=== PATIENT | male | born 1950 | race Two or more races ===

== ENCOUNTER → 2022-10-19 | Outpatient (CLI) | payer OTHER ==
[2022-10-19 10:04] LABS: Urine Bacteria FEW /hpf (None Seen); Urine Blood Negative /uL (Negative); Urine Mucus FEW (None Seen); Urine Specific Gravity 1.022 (1.001-1.035); Urine WBC <1 /hpf (0 - 3)
[2022-10-19 10:35] LABS: Anion Gap 4 (5-15); Carbon Dioxide 26 mmol/L (21-32); Chloride 107 mmol/L (98-107); Potassium 4.3 mmol/L (3.5-5.1); Prolactin 9.42 ng/mL (2.8-29.2); Prostate Specific Antigen 1.39 ng/mL (0.0-4.0); Sodium 137 mmol/L (136-145)
[2022-10-19 10:42] LABS: Alanine Aminotransferase 36 U/L (16-61); Albumin 3.9 g/dL (3.4-5.0); Alkaline Phosphatase 73 U/L (45-117); Aspartate Aminotransferase 30 U/L (15-37); BUN/Creatinine Ratio 18.9 (10.0-20.0); Bilirubin, Direct < 0.1 mg/dL (0-0.2); Bilirubin, Total 0.4 mg/dL (0.2-1.0); Blood Urea Nitrogen 17 mg/dL (7-18); Calcium 9.7 mg/dL (8.5-10.1); Cholesterol 162 mg/dL (< 200); GFR African American 106 mL/min; GFR Non-African American 88 mL/min; Glucose 99 mg/dL (74-106); HDL Cholesterol 35 mg/dL (40-59); LDL Cholesterol 106 mg/dL (< 100); Total Protein 8.2 g/dL (6.4-8.2); Triglycerides 199 mg/dL (< 150)
== END | disposition home or self-care (01) ==
LOC: LAB 09:18
PROVIDERS: ATTEND Family Medicine
DX: Z00.00 Encounter for general adult medical examination without abnormal findings (principal); K76.89 Other specified diseases of liver; E07.9 Disorder of thyroid, unspecified; E55.9 Vitamin D deficiency, unspecified
CPT/HCPCS: 36415; 80053; 80061; 80076; 81001; 82306; 82607; 83036; 83540; 83550; 84146; 84153; 84155; 84165; 84403; 84443

== ENCOUNTER → 2023-05-11 | Outpatient (CLI) | payer OTHER ==
[2023-05-11 12:21] LABS: Basophils # (auto) 0 10 ^3/uL (0-0.2); Basophils % (auto) 0.9 % (0.0-2.0); Eosinophils # (auto) 0.2 10 ^3/uL (0-0.8); Eosinophils % (auto) 4.1 % (0.0-7.0); Hematocrit 41.2 % (41.0-53.0); Hemoglobin 14.3 g/dL (13.5-17.5); Lymphocytes # (auto) 1.8 10 ^3/uL (0.4-5.4); Mean Corpuscular Hemoglobin 30.2 pg (28.0-32.0); Mean Corpuscular Hgb Conc. 34.8 g/dL (32.0-36.0); Mean Corpuscular Volume 86.8 fL (80.0-100.0); Monocytes # (auto) 0.6 10 ^3/uL (0-1.3); Monocytes % (auto) 10.8 % (0.0-12.0); Neutrophils # (auto) 2.6 10 ^3/uL (1.6-8.6); Neutrophils % (auto) 49.2 % (37.0-80.0); Nucleated Red Blood Cells % 0.1 %; Red Blood Cells 4.75 10^6/uL (4.5-5.90); Red Cell Distribution Width 14.1 % (11.8-14.3); White Blood Cell 5.3 10^3/uL (4.4-10.8)
[2023-05-11 12:57] LABS: INR 0.98 (0.9-1.15); Prothrombin Time 10.3 sec (9.3-11.8)
[2023-05-11 13:02] LABS: Alanine Aminotransferase 28 U/L (7-40); Albumin 4.5 g/dL (3.2-4.8); Alkaline Phosphatase 85 U/L (46-116); Anion Gap 8 (5-15); Aspartate Aminotransferase 32 U/L (13-40); BUN/Creatinine Ratio 17.3 (10.0-20.0); Bilirubin, Total 0.3 mg/dL (0.2-1.0); Blood Urea Nitrogen 17 mg/dL (9-23); Calcium 9.5 mg/dL (8.7-10.4); Carbon Dioxide 25 mmol/L (20-30); Chloride 105 mmol/L (98-107); Glucose 87 mg/dL (74-106); Potassium 4.3 mmol/L (3.5-5.1); Sodium 138 mmol/L (136-145)
[2023-05-14 09:11] LABS: Hepatitis B Surface Antigen Negative (Negative)
[2023-05-14 09:32] LABS: Hepatitis C Antibody Negative (Negative)
== END | disposition home or self-care (01) ==
LOC: LAB 11:59
PROVIDERS: ATTEND Internal Medicine Gastroenterology
DX: K74.60 Unspecified cirrhosis of liver (principal)
CPT/HCPCS: 36415; 80053; 82105; 82728; 85025; 85610; 86803; 87340

== ENCOUNTER → 2023-09-26 | Day surgery (SDC) | payer OTHER ==
[2023-09-24 10:49] LABS: Basophils # (auto) 0.1 10 ^3/uL (0-0.2); Basophils % (auto) 1.3 % (0.0-2.0); Eosinophils # (auto) 0.3 10 ^3/uL (0-0.8); Eosinophils % (auto) 4.8 % (0.0-7.0); Hematocrit 41.1 % (41.0-53.0); Hemoglobin 13.9 g/dL (13.5-17.5); Lymphocytes # (auto) 2.2 10 ^3/uL (0.4-5.4); Lymphocytes % (auto) 37.8 % (10.0-50.0); Mean Corpuscular Hemoglobin 29.8 pg (28.0-32.0); Mean Corpuscular Hgb Conc. 33.9 g/dL (32.0-36.0); Mean Corpuscular Volume 87.8 fL (80.0-100.0); Monocytes # (auto) 0.7 10 ^3/uL (0-1.3); Monocytes % (auto) 11.5 % (0.0-12.0); Neutrophils # (auto) 2.6 10 ^3/uL (1.6-8.6); Neutrophils % (auto) 44.6 % (37.0-80.0); Nucleated Red Blood Cells % 0.1 %; Red Blood Cells 4.68 10^6/uL (4.5-5.90); Red Cell Distribution Width 14.4 % (11.8-14.3); White Blood Cell 5.8 10^3/uL (4.4-10.8)
[2023-09-24 11:03] LABS: INR 0.99 (0.9-1.15); Partial Thromboplastin Time 31.9 SEC (24.5-34.5); Prothrombin Time 10.4 sec (9.3-11.8)
[2023-09-24 11:26] LABS: Alanine Aminotransferase 43 U/L (7-40); Alkaline Phosphatase 65 U/L (46-116); Anion Gap 8 (5-15); Aspartate Aminotransferase 63 U/L (13-40); BUN/Creatinine Ratio 11.8 (10.0-20.0); Blood Urea Nitrogen 11 mg/dL (9-23); Calcium 9.4 mg/dL (8.5-10.1); Carbon Dioxide 24 mmol/L (20-30); Chloride 106 mmol/L (98-107); Glucose 83 mg/dL (74-106); Sodium 138 mmol/L (136-145)
[2023-09-24 11:27] LABS: Albumin 4.4 g/dL (3.2-4.8); Bilirubin, Total 0.4 mg/dL (0.2-1.0); Total Protein 7.9 g/dL (5.7-8.2)
[~2023-09-26] VITALS: Ht 172.7 cm; Wt 94.3 kg
[~2023-09-26] MED LIST: CHOL100047 PO; EPINEPHrine HCL 1 MG/1 ML AMP ONE; EPINEPHrine HCL 1 MG/10 ML SYRG ONE; MAGN200T9 PO; OMEG-75 PO; SODIUM CHLORIDE LOCK 10 ML ONE
[2023-09-26] MEDS: fentaNYL CITRATE 100 MCG/2 ML VL ONE (13:00)
[2023-09-26] MEDS: MIDAZOLAM HCL 5 MG/ML-1ML VIAL ONE (13:00)
[2023-09-26] MEDS: diphenhdrAMINE HCL 50 MG/1 ML VL ONE (13:00)
[2023-09-26 13:22] VITALS: PULSE 64; RESP 14; TEMP 98.3
[2023-09-26 14:06] VITALS: BP 137/99; PULSE 64; RESP 19; O2SAT 92
== END | disposition home or self-care (01) ==
LOC: GI 09:50
PROVIDERS: ATTEND Internal Medicine Gastroenterology
DX: Z12.11 Encounter for screening for malignant neoplasm of colon (principal); K62.1 Rectal polyp; K63.89 Other specified diseases of intestine; K57.30 Diverticulosis of large intestine without perforation or abscess without bleeding; K64.1 Second degree hemorrhoids; K21.9 Gastro-esophageal reflux disease without esophagitis; Z87.01 Personal history of pneumonia (recurrent); Z87.891 Personal history of nicotine dependence; Z98.890 Other specified postprocedural states
CPT/HCPCS: 36415; 45380; 80053; 85025; 85610; 85730; J1200; J2250; J3010; J7030; 99152; 99153; J0171

== ENCOUNTER 2024-12-30 11:41 | Outpatient (CLI) | payer OTHER ==
[~2024-12-30 11:41] MED LIST changes: -EPINEPHrine HCL 1 MG/1 ML AMP ONE; -EPINEPHrine HCL 1 MG/10 ML SYRG ONE; -SODIUM CHLORIDE LOCK 10 ML ONE
[2024-12-30 12:01] LABS: Urine Bacteria None Seen /hpf (None Seen)
[2024-12-30 12:12] LABS: Urine Blood TRACE /uL (Negative); Urine Clarity Clear (Clear); Urine Color Yellow (Yellow); Urine Mucus FEW (None Seen); Urine Protein, UAD Negative (Negative); Urine Specific Gravity 1.024 (1.001-1.035); Urine Squamous Epithelial Cell None Seen /hpf (<5); Urine Urobilinogen Normal (Negative); Urine WBC 1 /HPF (0-3); Urine pH 5.5 (5.0-9.0)
[2024-12-30 12:13] LABS: Basophils # (auto) 0 10 ^3/uL (0-0.2); Basophils % (auto) 0.7 % (0.0-2.0); Eosinophils # (auto) 0.2 10 ^3/uL (0-0.8); Eosinophils % (auto) 3.1 % (0.0-7.0); Hematocrit 43.5 % (41.0-53.0); Hemoglobin 15.2 g/dL (13.5-17.5); Lymphocytes # (auto) 2.6 10 ^3/uL (0.4-5.4); Lymphocytes % (auto) 49.5 % (10.0-50.0); Mean Corpuscular Hemoglobin 29.6 pg (28.0-32.0); Mean Corpuscular Hgb Conc. 34.8 g/dL (32.0-36.0); Monocytes # (auto) 0.5 10 ^3/uL (0-1.3); Monocytes % (auto) 10.1 % (0.0-12.0); Neutrophils # (auto) 1.9 10 ^3/uL (1.6-8.6); Neutrophils % (auto) 36.6 % (37.0-80.0); Nucleated Red Blood Cells % 0.2 %; Platelet Count (auto) 217 10^3/uL (140-450); Red Blood Cells 5.12 10^6/uL (4.5-5.90); Red Cell Distribution Width 14.4 % (11.8-14.3); White Blood Cell 5.2 10^3/uL (4.4-10.8)
[2024-12-30 12:24] LABS: INR 0.99 (0.9-1.15); Prothrombin Time 10.5 sec (9.3-11.8)
[2024-12-30 12:39] LABS: Prostate Specific Antigen 1.33 ng/mL (0.0-4.0)
[2024-12-30 12:40] LABS: Albumin 4.6 g/dL (3.2-4.8); Alkaline Phosphatase 74 U/L (46-116); Anion Gap 7 (5-15); BUN/Creatinine Ratio 15.2 (10.0-20.0); Blood Urea Nitrogen 16 mg/dL (9-23); Calcium 9.9 mg/dL (8.7-10.4); Carbon Dioxide 25 mmol/L (20-31); Glucose 86 mg/dL (74-106); Magnesium 2.1 mg/dL (1.6-2.6); Potassium 4.1 mmol/L (3.5-5.1); Sodium 140 mmol/L (136-145); Total Protein 8.1 g/dL (5.7-8.2)
[2024-12-30 12:41] LABS: Bilirubin, Total 0.5 mg/dL (0.2-1.0); Cholesterol 171 mg/dL (< 200)
[2024-12-30 12:43] LABS: Alanine Aminotransferase 40 U/L (7-40); Aspartate Aminotransferase 49 U/L (13-40); Chloride 108 mmol/L (98-107); HDL Cholesterol 33 mg/dL (40-59); LDL Cholesterol 121 mg/dL (< 100); T3 Total 1.17 ng/mL (0.60-1.81); Triglycerides 168 mg/dL (< 150)
[2024-12-30 12:44] LABS: Free T3 3.11 pg/mL (2.3-4.2); Thyroid Stimulating Hormone 1.68 uIU/mL (0.55-4.78)
[2024-12-30 12:45] LABS: Free T4 (Free Thyroxine) 1.01 ng/dL (0.89-1.76)
[2024-12-30 13:07] LABS: Uric Acid 8.6 mg/dL (3.7-9.2)
== END 2024-12-30 17:00 | disposition home or self-care (01) ==
LOC: LAB 11:41
PROVIDERS: ATTEND Family Medicine
DX: K76.0 Fatty (change of) liver, not elsewhere classified (principal); K63.5 Polyp of colon; R20.2 Paresthesia of skin; Z00.00 Encounter for general adult medical examination without abnormal findings; Z68.35 Body mass index [BMI] 35.0-35.9, adult; Z79.899 Other long term (current) drug therapy
CPT/HCPCS: 36415; 80053; 80061; 81001; 82105; 82306; 82607; 83036; 83615; 83735; 84153; 84403; 84439; 84443; 84480; 84481; 84550; 85025; 85610; 87086

== ENCOUNTER 2025-04-16 09:10 | Outpatient (CLI) | payer OTHER ==
[2025-04-16 09:34] LABS: Hematocrit 41.7 % (41.0-53.0); Hemoglobin 14.7 g/dL (13.5-17.5); Mean Corpuscular Hemoglobin 30.2 pg (28.0-32.0); Mean Corpuscular Volume 85.5 fL (80.0-100.0); Nucleated Red Blood Cells % 0.2 %
[2025-04-16 09:53] LABS: Alanine Aminotransferase 26 U/L (7-40); Albumin 4.4 g/dL (3.2-4.8); Alkaline Phosphatase 67 U/L (46-116); Anion Gap 9 (5-15); BUN/Creatinine Ratio 11.2 (10.0-20.0); Bilirubin, Total 0.7 mg/dL (0.2-1.0); Blood Urea Nitrogen 12 mg/dL (9-23); Calcium 9.3 mg/dL (8.7-10.4); Carbon Dioxide 25 mmol/L (20-31); Chloride 106 mmol/L (98-107); Cholesterol 117 mg/dL (< 200); Glucose 87 mg/dL (74-106); Potassium 4.2 mmol/L (3.5-5.1); Sodium 140 mmol/L (136-145); Total Protein 8.0 g/dL (5.7-8.2)
[2025-04-16 10:11] LABS: HDL Cholesterol 34 mg/dL (40-59); Triglycerides 152 mg/dL (< 150)
[2025-04-17 10:55] LABS: Hepatitis A Total Antibody Positive (Negative)
[2025-04-17 10:56] LABS: Hepatitis B Surface Antigen Negative (Negative); Hepatitis C Antibody Negative (Negative)
== END 2025-04-16 17:00 | disposition home or self-care (01) ==
LOC: LAB 09:10
PROVIDERS: ATTEND Family Medicine
DX: R73.03 Prediabetes (principal); K75.81 Nonalcoholic steatohepatitis (NASH); G62.9 Polyneuropathy, unspecified; Z68.33 Body mass index [BMI] 33.0-33.9, adult
CPT/HCPCS: 36415; 80053; 80061; 83036; 85025; 86704; 86706; 86708; 86803; 87340

== ENCOUNTER → 2025-05-20 | Outpatient (CLI) | payer OTHER | END | disposition home or self-care (01) | LOC: LAB 08:38 | PROVIDERS: ATTEND Family Medicine | DX: D22.9 Melanocytic nevi, unspecified (principal); R73.03 Prediabetes; M15.9 Polyosteoarthritis, unspecified; Z68.33 Body mass index [BMI] 33.0-33.9, adult | CPT/HCPCS: 36415; 86708 ==

== ENCOUNTER 2025-07-10 08:16 | Outpatient (CLI) | payer OTHER ==
[2025-07-10 09:14] LABS: Alanine Aminotransferase 26 U/L (7-40); Albumin 4.3 g/dL (3.2-4.8); Alkaline Phosphatase 75 U/L (46-116); Anion Gap 8 (5-15); BUN/Creatinine Ratio 11.1 (10.0-20.0); Blood Urea Nitrogen 12 mg/dL (9-23); Calcium 9.5 mg/dL (8.7-10.4); Carbon Dioxide 27 mmol/L (20-31); Chloride 106 mmol/L (98-107); Cholesterol 108 mg/dL (< 200); Glucose 87 mg/dL (74-106); Potassium 4.3 mmol/L (3.5-5.1); Sodium 141 mmol/L (136-145); Total Protein 7.8 g/dL (5.7-8.2); Triglycerides 134 mg/dL (< 150)
[2025-07-10 09:15] LABS: Bilirubin, Total 0.6 mg/dL (0.2-1.0)
[2025-07-10 09:20] LABS: HDL Cholesterol 31 mg/dL (40-59)
== END 2025-07-10 17:00 | disposition home or self-care (01) ==
LOC: LAB 08:16
PROVIDERS: ATTEND Family Medicine
DX: R73.03 Prediabetes (principal); G62.9 Polyneuropathy, unspecified; Z68.33 Body mass index [BMI] 33.0-33.9, adult; Z68.34 Body mass index [BMI] 34.0-34.9, adult
CPT/HCPCS: 36415; 80053; 80061; 83036